=== PATIENT | male | born 1960 | race Caucasian/White ===

== ENCOUNTER 2019-06-14 01:11 | Observation (INO) | payer BC ==
[~2019-06-14] VITALS: Ht 167.6 cm; Wt 94.7 kg
--- NOTE | ~2019-06-14 | HEMODYNAMI ---
PATIENT:LEICEO PEREZ MEDICAL RECORD: [id number] : 64 LOCATION:[facility] D.2115 ADMISSION DATE: 06/14/19 Generatedon:06/14/201913:23 Patient name: ELICEO PEREZ Patient #: [id number] SSN: D OB: 1960 Date of study: 06/14/2019 Page: Of Hemodynamic Procedure Report Patient Data Patient Demographics Procedure consent was obtained First Name: ELICEO Gender: Male Last Name: ANA : 1960 Patient #: [id number] Age: 59 year(s) Race: Accession #: Ethnicity: or [id number] Additional ID: [id number] Contact details Address: [address] [place] [address] State: [place] City: [facility] Zip code: [address] Past Medical History Allergies: No known allergies Admission Admission Data Admission Date: 06/14/2019 Admission Time: 3:18 Room #: D.2115 Lab Results Lab Result Date: 06/14/2019 Lab Result Time: 0:00 Biochemistry Name Units Result Min Max BUN mg/dl 28 --(----)-* 7 18 Creatinine mg/dl 1.1 --(--*-)-- 0.6 1.3 eGFR ml/min 73.64611 *-(----)-- 90 120 NONAFRICAN CBC Name Units Result Min Max Hematocrit % 43.1 --(*---)-- 42 54 Hemoglobin g/dl 15.1 --(-*--)-- 13.5 17.5 Procedure Procedure Types Cath Procedure Diagnostic Procedure LHC [facility] w/Coronaries Sedation Charges Moderate Sedation up to 15 minutes PCI Procedure Coronary Stent Coronary Stent Initial PTCA PTCA Initial Procedure Description Procedure Date Procedure Date: 06/14/2019 Procedure Start Time: 12:51 Procedure End Time: 13:18 Procedure Staff Name Function Silas Garcia MD Performing Physician Sonali Guevara RT Monitor Nani Barajas RT Scrub Irwin Beckham RN Nurse Vincent Escobar RT Coach Mechanic Procedure Data Cath Procedure Fluoroscopy Diagnostic fluoroscopy Total fluoroscopy Time: 5.4 time: 5.4 min min Diagnostic fluoroscopy Total fluoroscopy dose: dose: 1072 mGy 1072 mGy Contrast Material Contrast Material Type Amount (ml) Isovue 300 135 Entry Location Entry Primary Successful Side Size Upsize Upsize Entry Closure Succes sful Closure Location (Fr) 1 (Fr) 2 (Fr) Remarks Device Remarks Femoral Right 5 Fr 6 Fr Exoseal artery Short Estimated blood loss: 10 ml Diagnostic catheters Device Type Used For End Catheter Placement MULTIPACK JL 4.0 5Fr Procedure catheter MULTIPACK 3DRC 5Fr Procedure catheter MULTIPACK Pigtail 5 Fr Procedure catheter Procedure Complications No complications Procedure Medications Medication Administration Route Dosage Oxygen etCO2 Nasal cannula 2 l/min Lidocaine 2% added to field 20 Heparin Flush Bag added to field 2 bags (1000units/500ml NS) 0.9% NaCl I.V. 100 ml/hr Fentanyl I.V. 100 mcg Versed I.V. 2 mg Heparin Bolus I.V. 4000 units Integrilin (Bolus I.V. 8.5 ml 2mg/ml) Fentanyl I.V. 50 mcg Plavix P.O. 600 mg Fentanyl I.V. 50 mcg Hemodynamics Rest HGB: 15.1 (g/dl) Heart Rate: 60 (bpm) Pressure Samples Time Site Value (mmHg) Purpose Heart Use Rate(bpm) 12:56 LV 82/12,14 Snapshot 62 Gradients Valve Time Site Site Mean SEP/DFP Peak To Heart Use 1 2 (mmHg) (sec/min) Peak Rate (mmHg) (bpm) Aortic 12:57 LV AO 67 Snapshots Pre Cath Intra NCS Post Cath Vital Signs Time Heart Resp SPO2 etCO2 NIBP Rhythm Pain Sedation Rate (ipm) (%) (mmHg) (mmHg) Status Level (bpm) 12:45:50 65 15 96 11.2 100/71(80) NSR 0 (11) 10(A) , No pain 12:49:54 57 15 98 16.5 105/73(83) NSR 0 (11) 10(A) , No pain 12:53:56 56 10 99 0 95/60(73) NSR 0 (11) 10(A) , No pain 12:58:00 66 19 97 0 103/64(78) NSR 0 (11) 9(A) , No pain 13:02:05 66 19 94 0 99/63(78) NSR 0 (11) 9(A) , No pain 13:06:09 71 12 95 23.2 94/69(87) NSR 0 (11) 9(A) , No pain 13:10:56 59 19 96 0 113/70(93) NSR 0 (11) 10(A) , No pain 13:15:06 56 18 98 0 106/67(86) NSR 0 (11) 10(A) , No pain Medications Time Medication Route Dose Verified Delivered Reason Notes Effectiveness by by 12:39:22 Oxygen etCO2 2 Silas Gayle Per physician Nasal l/min St Geovanni Beckham RN cannula 12:39:30 Lidocaine 2% added 20ml Silas Rosen for local to vial [facility] anesthetic field MD COPPOLA 12:39:38 Heparin Flush added 2 Silas Silas used for Bag to bags [facility] procedure (1000units/500ml field MD COPPOLA NS) 12:47:41 0.9% NaCl I.V. 100 Silas Gayle Per physician ml/hr St Geovanni Beckham RN, MD 12:50:29 Fentanyl I.V. 100 Silas Gayle for sedation mcg [facility] Geovanni Beckham RN, MD 12:50:40 Versed I.V. 2 mg Silas Gayle for sedation St Geovanni Beckham RN, MD 12:55:13 Fentanyl I.V. 50 Silas Gayle for sedation david Doherty RN, MD 12:59:25 Heparin Bolus I.V. 4000 Silas Gayle for verif ied units St Geovanni Beckham RN anticoagulation with dr MD hope 13:01:36 Integrilin I.V. 8.5 Silas Gayle for waste d (Bolus 2mg/ml) ml St Geovanni Beckham RN antiplatelet 1.5 ml therapy of vial 13:06:38 Fentanyl I.V. 50 Silas Gayle for sedation mcg [facility] Geovanni Beckham RN, MD 13:13:27 Plavix P.O. 600 Silas Gay[address] for mg St Geovanni Beckham RN antiplatelet therapy Procedure Log Time Note 12:30:22 Vicnent DAVIDSON(R) sent for patient. Start room use. 12:34:01 Informed consent obtained and on chart 12:36:07 Procedure Status Urgent Heart Cath (IP). 12:36:09 Time tracking: Regular hours (M-F 7:00 - 5:00) 12:36:15 Plan of Care:Hemodynamics will remain stable., Cardiac rhythm will remain stable., Comfort level will be maintained., Respiratory function will remain adequate., Patient/ family verbilizes understanding of procedure., Procedure tolerated without complication., Recovers from procedure without complications.. 12:37:04 Patient received from Med II to CCL 1 Alert and oriented. Tansferred to table in Supine position. 12:37:05 Warm blankets applied, and urmila hugger turned on for patient comfort. 12:37:05 Correct patient and procedure confirmed by team. 12:37:08 ECG and BP/O2 sat monitors applied to patient. 12:39:22 Oxygen 2 l/min etCO2 Nasal cannula was administered by Irwin Beckham RN; Per physician; Verbal order read back and verified. 12:39:30 Lidocaine 2% 20ml vial added to field was administered by Silas Garcia MD; for local anesthetic; Verbal order read back and verified. 12:39:38 Heparin Flush Bag (1000units/500ml NS) 2 bags added to field was administered by Silas Garcia MD; used for procedure; Verbal order read back and verified. 12:44:49 Vital chart was started 12:44:50 Baseline sample Acquired. 12:44:54 Rhythm: sinus bradycardia 12:44:58 Full Disclosure recording started 12:45:21 H&P Date Dictated: 06/14/2019 ER History on chart.. 12:45:22 Pre-procedure instructions explained to patient. 12:45:22 Pre-op teaching completed and patient verbalized understanding. 12:45:24 Family in patients room. 12:45:28 Patient NPO since Midnight. 12:45:36 Patient allergic to No known allergies 12:45:52 Is patient on blood thinner?No 12:45:55 Patient diabetic? No. 12:46:02 Previous problem with sedation/anesthesia? No ? 12:46:04 Snore? Yes 12:46:05 Sleep apnea? Yes 12:46:06 Deviated septum? No 12:46:09 Opens mouth fully? Yes 12:46:11 Sticks out tongue? No 12:46:15 Airway obstruction? No ? 12:46:18 Dentures? No ? 12:46:21 Pre procedure: right dorsailis pedis pulse 1+ Palpable, but thready & weak; easily obliterated 12:46:26 Patient pain scale 0/10 ?. 12:46:33 IV patent on arrival in right wrist with 0.9% NaCl at [facility]. 12:47:08 Lab Result : BUN 28 mg/dl 12:47:08 Lab Result : eGFR NONAFRICAN 73.37657 ml/min 12:47:08 Lab Result : Creatinine 1.1 mg/dl 12:47:08 Lab Result : Hemoglobin 15.1 g/dl 12:47:08 Lab Result : Hematocrit 43.1 % 12:47:11 Lab results completed and on chart. 12:47:15 Right groin area was prepped with chlora-prep and draped in sterile fashion 12:47:16 Alarms reviewed by R. N. 12:47:19 Sharps counted by scrub and verified by R.N. 12:47:41 0.9% NaCl 100 ml/hr I.V. was administered by Irwin Beckham RN; Per physician; Verbal order read back and verified. 12:49:36 Risk of Mortality: .1 12:49:40 Risk of blood transfusion: .4 12:49:43 Risk of CHELITA: .2 12:49:44 --------ALL STOP TIME OUT------ 12:49:45 Final Timeout: patient, procedure, and site verified with staff and physician. All members of the team are in agreement. 12:49:46 Right groin site verified by team. 12:49:50 Fire Safety Assessment: A--An alcohol-based skin anteseptic being used preoperatively., C--Open oxygen or nitrous oxide is being used., D--An ESU, laser, or fiber-optic light is being used. 12:49:54 Physical assessment completed. ASA score P 2 - A patient with mild systemic disease as per Silas Garcia MD. 12:49:58 2) 60-89 Mildly reduced kidney function, and other findings (as for stage 1) point to kidney disease. 12:50:01 Maximum allowable contrast dose (3.7 X eGFR X 0.75)203 ml. 12:50:05 Sedation plan: IV Moderate Sedation Medication:Versed, Fentanyl 12:50:12 Use device set Femoral Dx 12:50:13 ACIST Syringe (33912) opened to sterile field. 12:50:13 Bag Decanter (2002S) opened to sterile field. 12:50:14 ACIST Hand Control (40891) opened to sterile field. 12:50:15 ACIST Manifold (15691) opened to sterile field. 12:50:15 Tegaderm 4 x 4 (1626W) opened to sterile field. 12:50:16 Medline Cath Pack ([id number]) opened to sterile field. 12:50:17 DIAGNOSTIC Multipack 5Fr catheter set (IL8910) opened to sterile field. 12:50:18 SHEATH 5FR [place] (ABY517) opened to sterile field. 12:50:19 EMERALD Guide Wire (596-061) opened to sterile field. 12:50:29 Fentanyl 100 mcg I.V. was administered by Irwin Beckham RN; for sedation; Verbal order read back and verified. 12:50:40 Versed 2 mg I.V. was administered by Irwin Beckham RN; for sedation; Verbal order read back and verified. 12:51:08 Procedure started. 12:51:13 Local anesthetic to right femoral artery with Lidocaine 2% by Silas Garcia MD.INITIAL ACCESS ONLY 12:51:26 A 5 Fr sheath was inserted into the Right Femoral artery 12:51:56 A MULTIPACK JL 4.0 5Fr catheter was advanced over the wire and used for Procedure. 12:54:27 LCA angiography performed. 12:54:30 Catheter removed. 12:54:50 A MULTIPACK 3DRC 5Fr catheter was advanced over the wire and used for Procedure. 12:55:13 Fentanyl 50 mcg I.V. was administered by Irwin Beckham RN; for sedation; Verbal order read back and verified. 12:55:35 RCA angiography performed. 12:55:37 ACCDominant side:Co-Dominant 12:55:38 Catheter removed. 12:55:43 A MULTIPACK Pigtail 5 Fr catheter was advanced over the wire and used for Procedure. 12:56:29 LV gram done using SPARKS 12:56:32 Injector settings: Ml/sec: 10, Volume: 20, 12:56:49 LV hemodynamics recorded. 12:57:00 EF : 55 % 12:57:02 Catheter removed. 12:57:33 SHEATH 6FR [place] (JFQ615) opened to sterile field. 12:57:33 INFLATOR Merit Dipakk (OV2509) opened to sterile field. 12:57:34 WHISPER 300cm guide wire ([id number]) opened to sterile field. 12:57:34 GUIDE 6FR XBLAD 3.5 catheter ([id number]) opened to sterile field. 12:57:58 Sheath upsized to a 6 Fr Short. 12:58:56 Pre PCI Site: [place] mLAD has 80% stenosis. 12:59:02 6 Fr XBLAD 3.5 guide catheter was inserted over the wire 12:59:25 Heparin Bolus 4000 units I.V. was administered by Irwin Beckham RN; for anticoagulation; verified with dr hope Verbal order read back and verified. 13:01:36 Integrilin (Bolus 2mg/ml) 8.5 ml I.V. was administered by Irwin Beckham RN; for antiplatelet therapy; wasted 1.5 ml of vial Verbal order read back and verified. 13:01:44 WHISPER 300 wire advanced. 13:04:08 Wire advanced across lesion. 13:04:38 Place stent Inflation Number: 1 A VIKTORIA OTW 3.0 x 12 stent ([id number]) was prepped and advanced across the Mid LAD . The stent was deployed at 14 CYN for 0:15 (min:sec) . 13:04:41 Stent catheter was removed intact over wire. 13:05:14 Wire redirected to DIAG. 13:05:29 Wire advanced across lesion. 13:06:10 Inflation number: 1 The stent balloon was then re-inflated across the 1st Diag to 4 CYN for 0:10 (min:sec) . 13:06:38 Fentanyl 50 mcg I.V. was administered by Irwin Beckham RN; for sedation; Verbal order read back and verified. 13:06:55 Inflation number: 2 The stent balloon was then re-inflated across the 1st Diag to 6 CYN for 0:10 (min:sec) . 13:07:00 Balloon removed over the wire. 13:07:32 Wire redirected to LAD. 13:07:51 Inflation number: 2 The stent balloon was then re-inflated across the Mid LAD to 6 CYN for 0:10 (min:sec) . 13:08:37 Balloon removed over the wire. 13:08:37 Wire removed. 13:08:38 Guide catheter removed. 13:09:04 EXOSEAL 6Fr (EX600) opened to sterile field. 13:09:58 Sheath removed intact; hemostasis achieved with Exoseal to the Right Femoral artery. 13:10:02 Procedure ended.(Physican Out) 13:10:41 Fluoroscopy time 05.40 minutes. 13:10:45 Flurop Dose total: 1072 13:10:45 Fluoroscopy dose: 1072 mGy 13:11:36 Dose Area Product 38981 mGy/cm. 13:11:58 Contrast amount:Isovue 300 135ml. 13:12:01 Maximum allowable dose exceeded? No. 13:12:05 Sharps counted by scrub and verified by R.N. 13:12:28 Post-op/insertion site Right Femoral artery dressed using a 4 x 4 and Tegaderm. 13:12:31 Post-procedure physical assessment completed. ASA score P 2 - A patient with mild systemic disease as per Silas Garcia MD. 13:12:35 Post procedure rhythm: sinus rhythm 13:12:38 Estimated blood loss: 10 ml 13:13:04 Post procedure instruction explained to patient.Patient verbalizes understanding. 13:13:04 Patient needs reinforcement of post procedure teaching. 13:13:27 Plavix 600 mg P.O. was administered by Irwin Beckham RN; for antiplatelet therapy; Verbal order read back and verified. 13:13:37 Procedure type changed to Cath procedure, Diagnostic procedure, C, [facility] w/Coronaries, Sedation Charges, Moderate Sedation up to 15 minutes, PCI procedure, Coronary Stent, Coronary Stent Initial, PTCA, PTCA Initial 13:14:47 Procedure and supply charges have been captured, reviewed, submitted and are correct. 13:14:52 Procedure Complication : No complications 13:15:07 ACT drawn and resulted at 226 seconds. (normal therapeutic range 180-240 seconds). 13:18:06 Vital chart was stopped 13:18:08 [facility] Findings: MVD- PCI performed (see procedure note) 13:18:10 Operative report dictated upon procedure completion. 13:18:11 See physician's report for complete and final results. 13:18:13 Report given to [facility]. 13:18:16 Patient transfered to [facility] with Bed. 13:18:19 Procedure ended. 13:18:19 Full Disclosure recording stopped 13:18:26 ACC-PCI Only Patient was given prescriptions, or instructed by Silas Garcia MD to start/continue the following medications upon discharge: Plavix 13:18:28 End room use (Document Last) Intervention Summary Intervention Notes Time ActionType Lesion and Equipment Action# Pressure Duration Attributes Used 13:04:38 Place stent Mid LAD VIKTORIA OTW 3.0 1 14 00:15 x 12 stent ([id number]) 13:06:10 Reinflate 1st Diag VIKTORIA OTW 3.0 1 4 00:10 stent x 12 stent balloon ([id number]) 13:06:55 Reinflate 1st Diag VIKTORIA OTW 3.0 2 6 00:10 stent x 12 stent balloon ([id number]) 13:07:51 Reinflate Mid LAD VIKTORIA OTW 3.0 2 6 00:10 stent x 12 stent balloon ([id number]) Device Usage Item Name Manufacture Quantity Catalog Hospital Part Current Mini mal Lot# / Number Charge Number Stock Stock Serial# Code ACIST Syringe Acist 1 39972 740884 757315 323652 20 (97798) Medical Systems Inc Bag Decanter Microtek 1 2002S 232774 26003 341343 5 (2002S) Medical Inc. ACIST Hand Acist 1 83361 564723 640570 983634 5 Control Medical (46378) Systems Inc ACIST Acist 1 07260 390195 588259 936083 5 Manifold Medical (20932) Systems Inc Tegaderm 4 x 3M 1 1626W 568350 012362 305976 5 4 (1626W) Medline Cath Medline 1 [id number] 587430 38522 916616 5 Pack ([id number]) DIAGNOSTIC Cardinal 1 JW9283 599028 18014 066414 30 Multipack 5Fr Health catheter set (ZU6120) SHEATH 5FR Terumo 1 BQR896 493402 059639 125939 5 [place] (NLG422) EMERALD Guide Cardinal 1 502-455 316265 847297 620237 5 Wire Health (502-920) MULTIPACK JL Cardinal 1 586631 5 4.0 5Fr Health catheter MULTIPACK Cardinal 1 612804 5 3DRC 5Fr Health catheter MULTIPACK Cardinal 1 871478 5 Pigtail 5 Fr Health catheter SHEATH 6FR Terumo 1 VGM126 588017 718560 685104 40 [place] (TJO043) INFLATOR Merit 1 BK0198 196536 917000 038138 15 [facility] Medical BasixCompak (SQ4282) WHISPER 300cm Day 1 [id number] 889449 314845 280113 5 guide wire Vascular (7561517GE) GUIDE 6FR Cardinal 1 [id number] 282007 565986 493372 10 XBLAD 3.5 Health catheter (37492408) VIKTORIA OTW 3.0 Medtronic 1 [id number] 949263 4956724 966787 5 [id number] x 12 stent ([id number]) EXOSEAL 6Fr Cardinal 1 EX600 400313 934141 095902 10 (EX600) Health Signature Audit Rankin Stage Time Signature Unsigned Intra-Procedure 06/14/2019 Sonali Guevara 1:22:46 PM RT(R) Intra-Procedure 06/14/2019 Irwin Beckham RN 1:23:08 PM Intra-Procedure 06/14/2019 Silas Anders 1:23:24 PM Geovanni COPPOLA [facility] [address] [place] [address]
--- NOTE | 2019-06-14 01:39 | NUR ---
PT DENIES RELIEF FROM NITRO X 1 RATES PAIN 03/28 MD AWARE. PT GIVEN NITRO #2
[2019-06-14 01:43] LABS: BASOPHILS 0.3 % (0-2); EOSINOPHILS 2.1 % (0-7); HEMATOCRIT 43.1 % (42.0-54.0); HEMOGLOBIN 15.1 g/dL (13.5-17.5); IMMATURE GRANULOCYTES 0.3 % (0-5); LYMPHOCYTES 17.9 % (15-50); MCH 30.8 pg (26.0-34.0); MEAN PLATELET VOLUME 9.3 fL (7.4-10.4); NEUTROPHILS 67.4 % (40-80); PLATELET COUNT 338 10x3/uL (130-400); RDW 12.7 % (11.5-14.5); WBC 11.2 10x3/uL (4.8-10.8)
--- NOTE | 2019-06-14 02:10 | NUR ---
PT DENIES RELIEF FROM NITRO INFORMED
[2019-06-14 02:30] VITALS: BP 99/61
[2019-06-14 02:42] LABS: CALC OSMOLALITY 284 mosm/kg (275-300); CALCIUM 9.4 mg/dL (8.5-10.1); CARBON DIOXIDE 30.2 mmol/L (21.0-32.0); CHLORIDE - SERUM 104 mmol/L (98-107); CREATININE - SERUM 1.1 mg/dL (0.6-1.3); GLUCOSE 114 mg/dL (74-106); POTASSIUM - SERUM 3.8 mmol/L (3.5-5.1); SODIUM 139 mmol/L (136-145); UREA NITROGEN 28 mg/dL (7-18); eGFR NON AFRICAN AMERICAN 73 mL/min (90-120)
[2019-06-14 02:44] LABS: APTT 27.2 SECONDS (22.8-39.4); INR 0.91 (0.85-1.17); PROTIME 11.8 SECONDS (11.6-15.0)
[2019-06-14 02:58] LABS: ALBUMIN 3.5 g/dL (3.4-5.0); ALKALINE PHOSPHATASE 126 U/L (46-116); ALT (SGPT) 32 U/L (10-68); BILIRUBIN - TOTAL 0.56 mg/dL (0.2-1.3); CKMB 1.4 U/L (0.0-3.6); CREATINE KINASE 115 UL (21-232); LIPASE 195 U/L (73-393); MAGNESIUM - SERUM 2.2 mg/dL (1.8-2.4); PROTEIN - SERUM 7.3 g/dL (6.4-8.2)
[2019-06-14 03:00] LABS: TROPONIN-I < 0.017 ng/mL (0.000-0.060)
[2019-06-14 03:28] LABS: CHOL - HDL RATIO 5.1 ratio (2.3-4.9); LDL-HDL RATIO 3.8 ratio (1.5-3.5)
[2019-06-14 03:57] VITALS: BP 105/65; Ht 167.6 cm; Wt 94.7 kg
--- NOTE | 2019-06-14 04:02 | NUR ---
RECIEVED REPORT FROM GUILLERMO ARAMBULA IN ER. ARRIVED TO FLOOR IN W/C AT 0340. TRANSFERED SELF TO BED. ALERT AND ORIENTED X4. IV TO RIGHT FA SL.. LUNG SOUNDS CLEAR BILATERALLY. TELEMETRY IN PLACE AND RATE 73 SINUS. DENIES ANY OTHER NEEDS AT THIS TIME.
[2019-06-14 08:33] LABS: CREATINE KINASE 89 UL (21-232); TROPONIN-I < 0.017 ng/mL (0.000-0.060)
[2019-06-14 08:54] VITALS: BP 110/73
--- NOTE | 2019-06-14 09:05 | NUR ---
CONSENTS SIGNED FOR [facility]. WILL CONT. PLAN OF CARE.
[2019-06-14 09:25] LABS: ALT (SGPT) 35 U/L (10-68); CALC OSMOLALITY 286 mosm/kg (275-300); CALCIUM 9.5 mg/dL (8.5-10.1); CHLORIDE - SERUM 103 mmol/L (98-107); CHOL - HDL RATIO 5.4 ratio (2.3-4.9); CHOLESTEROL, TOTAL 190 mg/dL (0-200); GLUCOSE 113 mg/dL (74-106); HDL CHOLESTEROL 35 mg/dL (32-96); LDL CHOLESTEROL 143 mg/dL (0-100); LDL-HDL RATIO 4.1 ratio (1.5-3.5); SODIUM 141 mmol/L (136-145); TRIGLYCERIDE 63 mg/dL (30-200); UREA NITROGEN 27 mg/dL (7-18); eGFR NON AFRICAN AMERICAN 82 mL/min (90-120)
[2019-06-14 09:50] LABS: BASOPHILS 0.2 % (0-2); EOSINOPHILS 1.8 % (0-7); HEMATOCRIT 42.1 % (42.0-54.0); HEMOGLOBIN 14.9 g/dL (13.5-17.5); IMMATURE GRANULOCYTES 0.2 % (0-5); LYMPHOCYTES 17.1 % (15-50); MCH 31.2 pg (26.0-34.0); MCHC 35.4 g/dL (31.0-37.0); MCV 88.1 fL (80.0-100.0); MEAN PLATELET VOLUME 9.5 fL (7.4-10.4); MONOCYTES 14.6 % (2-11); NEUTROPHILS 66.1 % (40-80); PLATELET COUNT 306 10x3/uL (130-400); RBC 4.78 10x6/uL (4.20-6.10); RDW 12.8 % (11.5-14.5); WBC 11.1 10x3/uL (4.8-10.8)
[2019-06-14 12:00] VITALS: BP 102/68
--- NOTE | 2019-06-14 12:30 | NUR ---
CONSENTS SIGNED. PRE-OPS GIVEN. TO BALE SEWER BY BED.
[2019-06-14] MEDS ORDERED: PLAVIX75 MG PO (13:50)
[2019-06-14] MEDS ORDERED: BAYER CHEWABLE81 MG PO (13:51)
[2019-06-14] MEDS ORDERED: LIPITOR40 MG PO (13:51)
[2019-06-14 14:43] LABS: CKMB 0.6 U/L (0.0-3.6); CREATINE KINASE 71 UL (21-232); TROPONIN-I 0.031 ng/mL (0.000-0.060)
--- NOTE | 2019-06-14 15:29 | NUR ---
OFFERED PT TOBACCO QUITLINE, HE DECLINED. STATES HE IS USING GUM.
[2019-06-14 17:03] VITALS: BP 100/97
--- NOTE | 2019-06-14 17:17 | NUR ---
BED REST UP. GROIN STABLE. IV AND TELEMETRY DCD. DC PLANS GIVEN. UNDERSTANDING VOICED. ESCORTED TO CAR BY W/C.
--- NOTE | 2019-06-15 09:31 | MORECARE ---
CASE MANAGEMENT DISCHARGE SUMMARY PATIENT: ELICEO PEREZ UNIT: [id number] ADM DATE: 06/14/19 AGE: 59 : 64 SEX: M ROOM/BED: D.2115 AUTHOR: KIT TERRELL PHYSICIAN: REFERRING PHYSICIAN: DA HICKEY MD DATE OF SERVICE: 06/15/19 Discharge Plan Patient Name: ELICEO PEREZ [facility] [facility] 1960 Planned Disposition: Home Anticipated Discharge Date: 06/14/19 Discharge Date: 06/14/2019 Expected LOS: 1 Initial Reviewer: [email or web address] Initial Review Date: 06/15/2019 Generated: 06/15/19 10:30 am Patient Name: ELICEO PEREZ Page 28574 at 0931 All edits/amendments must be made on the electronic document DICTATION DATE: 06/15/19929 TURNTABLE ENGINEER: RAGHU 06/15/19929 RPT#: [id number] DC DATE:06/14/19 STATUS: DIS IN [facility] [address] [place] [address] END OF REPORT
--- NOTE | 2019-06-15 11:12 | OP ---
PATIENT NAME: ELICEO PEREZ MEDICAL RECORD: [id number] :64 LOCATION:D.M2 D.2115 ADMISSION DATE:06/14/19 SURGEON: DA HICKEY MD DATE OF OPERATION: 06/14/2019 PROCEDURE: Left heart catheterization, selective coronary angiography. CATHETERS: A 5-Maltese sheath, 5/4 left and the Ashish, 5/4 pig. The procedure was well tolerated. The patient returned to mendoza, sheath removed. ExoSeal device placed. FINDINGS: Left ventriculography in 30-degree SPARKS view: Normal wall motion. Normal systolic function. CORONARY ANATOMY: LEFT MAIN: Left main is free of disease. LAD: Just after the takeoff of first diagonal has a 90% stenosis, discrete. CIRCUMFLEX: Moderate size circumflex, free of disease. RIGHT CORONARY ARTERY: Dominant artery, free of disease. PLAN: Intervention to LAD momentarily. DESCRIPTION OF PROCEDURE: A 5-Maltese sheath was exchanged for a 6-Maltese sheath. An XB LAD guiding catheter provided excellent guide catheter support followed by 300-cm Whisper wire, which was placed across the 90% stenosed LAD at this portion of vessel. Stent deployed was 3.0 x 12 mm [place] drug-eluting stent up to 14 atmospheres. This shows excellent resolution of the 90% LAD stenosis with no significant residual. However, there was some snow plowing into to the D1. The Whisper wire itself was placed into the first diagonal and using the stent balloon, we then placed this into the ostium of the diagonal, inflated this up to 6 atmospheres for 30 seconds. Final angiography showed excellent resolution of 90% stenosed LAD with no significant residual. Successful PTCA after the D1. Plavix was loaded in the lab. Sheath closed with ExoSeal device. TRANSINT:[id number] Voice Confirmation ID: [id number] DOCUMENT ID: [id number] DA HICKEY MD at 1112 CC: [id number] DICTATION DATE: 06/14/19 1319 HEADLIGHT ADJUSTER: 06/14/19 1349 DIS IN 06/14/19 [facility] [address] [place] [address]
--- NOTE | 2019-06-15 11:12 | CN ---
PATIENT NAME:ELICEO PEREZ MEDICAL RECORD: [id number] : 64 LOCATION:[facility] D.2115 ADMIT DATE: 06/14/19 ACCOUNT: [id number] CONSULTING PHYSICIAN: DA HICKEY MD REFERRING PHYSICIAN: DA HICKEY MD DATE OF CONSULTATION: 06/14/2019 HISTORY OF PRESENT ILLNESS: A 59-year-old gentleman with no known history of coronary artery disease. Has a history of dyslipidemia, currently on therapy. Ongoing smoking. Strongly family history of coronary artery disease with brother and father both passing away with vascular disease. Admitted with chest tightness and pressure, ongoing for the past probably 3-4 days, rapidly progressing, relieved with nitroglycerin in the ER. We are asked to see him concerning his cardiovascular status. PAST MEDICAL HISTORY: Includes history of dyslipidemia. ALLERGIES: None known. MEDICATIONS: None chronically. SOCIAL HISTORY: Smokes about a pack a day. Social drinker. No set exercise program. Easily takes care of all his ADLs. REVIEW OF SYSTEMS: The patient reports easy bruising but reports no swollen glands. The patient reports no fever, no night sweats, no significant weight gain, no significant weight loss. No significant exercise tolerance. The patient reports no dry eyes, no irritation, no vision change. Patient reports no difficulty hearing and no ear pain. Patient reports no frequent nose bleeds or nose and sinus problems. Patient reports on arm pain on exertion. No shortness of breath while lying down. No history of heart murmur. Patient reports no cough, no wheezing or coughing up blood. Patient reports no abdominal pain, no vomiting. Normal appetite. No diarrhea and not vomiting blood. No nausea and no constipation. Patient reports no incontinence. No difficulty urinating. No hematuria. No increased frequency. Patient reports no muscle aches. No weakness, no arthralgias, no back pain. No swelling of the extremities. Patient reports no abnormal mole, no jaundice, no rashes. Reports no loss of consciousness. No weakness and no numbness. No seizures, dizziness, or headaches. The patient reports no depression, no sleep disturbance, feeling safe in a relationship and no alcohol abuse. Patient reports on fatigue. Reports no runny nose or sinus pressure. No itching, no hives, and no frequent sneezing. PHYSICAL EXAMINATION: GENERAL: Pleasant gentleman, in no acute distress, appears stated age. VITAL SIGNS: Blood pressure 110/73, pulse 60 and regular. HEENT: Normocephalic, atraumatic. NECK: No JVD or bruit. HEART: Regular. A II/ systolic ejection murmur. LUNGS: Good air excursion. ABDOMEN: Soft, nontender. EXTREMITIES: Pulses 2+. No edema. IMPRESSION: Acute coronary syndrome. CONSULT REPORT [id number] ELICEO PEREZ PLAN: Plan for angiography, intervention based on above. TRANSINT:[id number] Voice Confirmation ID: [id number] DOCUMENT ID: [id number] DA HICKEY MD at 1112 CC: [id number] DICTATION DATE: 06/14/19 112 RECOVERY OPERATOR: 06/14/19 1221 DIS IN 06/14/19 [facility] [address] [place] [address]
--- NOTE | 2019-06-15 11:12 | DS ---
PATIENT:ELICEO PEREZ :64 MEDICAL RECORD: [id number] DISCHARGE SUMMARY ADMISSION DATE: 06/14/19 DISCHARGE DATE: 06/14/19 PROBLEM LIST: 1. Acute coronary syndrome. 2. Dyslipidemia. BRIEF HISTORY AND HOSPITAL COURSE: A 59-year-old admitted with acute coronary syndrome, underwent diagnostic angiography, subsequent stenting to LAD. Discharged to home in good condition. Medications include the addition of Plavix 75 mg p.o. daily, Lipitor 40 mg p.o. every day. Lipids can be checked at Dr. Sam's office in 4-6 weeks. He is going to see us back in 3-4 weeks. ACTIVITY: As tolerated. DIET: AHA diet. I have recommended cardiac rehab to help him in exercise and maintenance program. TRANSINT:[id number] Voice Confirmation ID: [id number] DOCUMENT ID: [id number] DA HICKEY MD at 1112 CC: PERLA SAM [id number] DICTATION DATE: 06/14/19 1335 DAIRY [employer]IES SALES REPRESENTATIVE: 06/14/19 2241 DIS IN 06/14/19 [facility] [address] [place] [address]
== END 2019-06-14 17:32 | disposition home or self-care (01) ==
LOC: D.ER 01:11 → OBSVTIME 03:18 → D.M2 03:18
PROVIDERS: Emergency Medicine; ADMIT Internal Medicine Interventional Cardiology; ATTEND Internal Medicine Interventional Cardiology
DX: I24.9 Acute ischemic heart disease, unspecified (principal); E78.5 Hyperlipidemia, unspecified

== ENCOUNTER → 2021-01-17 12:31 | Outpatient (CLI) | payer BC ==
[2019-06-14 03:57] VITALS: BMI 33.7
--- NOTE | ~2021-01-17 | EC ---
PATIENT:ELICEO PEREZ V DATE OF SERVICE: 01/17/21 SEX: M MEDICAL RECORD: [id number] DATE OF : 64 LOCATION:D[facility] AGE OF PATIENT: 60 ADMISSION DATE: 01/17/21 REFERRING PHYSICIAN: INTERPRETING PHYSICIAN: DA HICKEY MD ECHOCARDIOGRAM REPORT ECHO CHARGES 4 ECHO COMPLETE Date: 01/17/21 CLINICAL DIAGNOSIS: CAD/ASSESS EF AND VALVES ECHOCARDIOGRAPHIC MEASUREMENTS (adult normal given) AC root (d.<3.7cm) 4.3 cm LV Septum d (<1.2 cm> 1.5 cm Valve Excursion 1.6 cm LV Septum (systole) 1.8 cm Left Atria (s.<4.0cm> 3.7 cm LVPW d(<1.2cm) 1.5 cm RV (d.<2.3cm) 3.9 cm LVPW (sytole) 1.8 cm LV diastole(<5.6CM) 4.4 cm MV E-F(>70mm/sec) cm LV systole 2.9 cm LVOT Diameter 1.9 cm MV exc.(>10mm) 1.5 cm Est.ejection fraction (50-75%) % DOPPLER: LVIT cm/sec A 58.0 cm/sec E 69.0 cm/sec LA cm/sec RVSP 21 mmHg LVOT 114 cm/sec AOP1/2T m/s Asc. Ao 139 cm/sec RVOT 83 cm/sec RA cm/sec PA 110 cm/sec AV Gradient Peak 7.68 mmHg AV Mean 4.26 mmHg AV Area 2.5 cm MV Gradient Peak 1.88 mmHg MV Mean 0.50 mmHg MV Area cm COMMENTS: Jailer: 2 [employer] Inclusion Special Education Teacher: 3 Dr. [place] TAPE# PACS Pericardial Effusion N DATE OF SERVICE: Adequate 2D, color flow imaging, spectral Doppler, and M-Mode. LVH is present. LV internal dimensions are normal. Wall motion normal. EF greater than or equal to 55%. Aortic valve is tricuspid. No evidence of stenosis by Doppler interrogation. Left atrium is normal at 3.7 cm. Mitral valve shows no prolapse. Trace MR. Right-sided chambers are grossly normal. Trace TR. ECHOCARDIOGRAM REPORT [id number] ELICEO PEREZ V TRANSINT:[id number] Voice Confirmation ID: [id number] DOCUMENT ID: [id number] DA HICKEY MD CC: [id number] DICTATION DATE: 01/18/21 1701 SHARK BIOLOGIST: 01/19/213 DEP CLI 01/17/21 [place] [id number]
[~2021-01-17 12:31] MED LIST: BAYER CHEWABLE81 MG PO; LIPITOR40 MG PO; PLAVIX75 MG PO
== END | disposition home or self-care (01) ==
LOC: D.HCCECHO 12:31
PROVIDERS: ATTEND Internal Medicine Interventional Cardiology
DX: I25.10 Atherosclerotic heart disease of native coronary artery without angina pectoris (principal)